=== PATIENT | male | born 1980 | race Caucasian/White ===

== ENCOUNTER 2023-08-22 14:41 | Outpatient (AMB) | payer OTHER, SELFPAY ==
--- NOTE | 2023-08-22 15:11 | A.SPINEOV_ITS ---
Intake Intake Visit Reasons: F/U for final evaluation of a cervical fusion Intake Note: Mr. Ernst is here today to f/u ACDF from 2021. Possible c/spine disc herniation. Psychiatry Adult Physician Required: No Assessment & Plan Assessment & Plan (1) Numbness in both hands: Code(s): R20.0 - Anesthesia of skin (2) Neck pain with history of cervical spinal surgery: Code(s): M54.2 - Cervicalgia; Z98.890 - Other specified postprocedural states (3) Status post cervical arthrodesis: Code(s): Z98.1 - Arthrodesis status Plan Dear colleague Thank you for referring Jay Ernst to the office today with a chief complaint of progressive neck pain and bilateral hand numbness. HPI: This patient is status post anterior diskectomy and fusion for neck pain and bilateral arm pain with numbness in September of 2022. He was doing well until last June. He states that he noted a increase in posterior neck pain located the cervicothoracic area and an increase in numbness in his hands particularly the 1st 3 digits. No new weakness. PMH: No major medical problems Medications: None Allergies: None Social history: Nonsmoker Physical Exam: Mild pain on palpation on the posterior neck. No limitations or restrictions of neck movements. Numbness of the 1st 3 digits bilaterally. No pathological reflexes. Impression/Plan: This 42-year-old male status post ACDF C5-C6 now returning with increasing neck pain and bilateral hand numbness since June. I would like to order a new MRI to rule out adjacent degenerative disc disease. He will have the MRI done at the [facility] and returned to my office with a CD after the imaging is done. Thank you for allowing me to participate in your patients care. total time spent was 30 minutes in counseling ,coordination of plan,and subsequent plan Boom Horner MD, PhD Spine Fellowship Trained Neurosurgeon Director, [facility] Orders: Orders MR cervical spine wo con Today M54.2 - Cervicalgia, R20.0 - Anesthesia of skin, Z98.1 - Arthrodesis status, Z98.890 - Other specified postprocedural states Coding Level of Care Code New Pt Level 3 (13702) Diagnoses Numbness in both hands R20.0 Neck pain with history of cervical spinal surgery M54.2; Z98.890 Status post cervical arthrodesis Z98.1
== END 2023-08-22 15:50 | disposition home or self-care (01) ==
PROVIDERS: Visit Provider Neurological Surgery
DX: R20.0 Anesthesia of skin (principal); M54.2 Cervicalgia; Z98.890 Other specified postprocedural states; Z98.1 Arthrodesis status
CPT/HCPCS: 99203

== ENCOUNTER → 2023-08-22 14:41 | Outpatient (BNVA) | payer MEDICAID, SELFPAY | PROVIDERS: PCP Family Medicine; Visit Provider Neurological Surgery | DX: M54.2 Cervicalgia (principal); R20.0 Anesthesia of skin; Z98.1 Arthrodesis status; Z98.890 Other specified postprocedural states | CPT/HCPCS: 99202 ==

== ENCOUNTER 2023-10-30 13:39 | Outpatient (AMB) | payer OTHER, SELFPAY ==
--- NOTE | 2023-10-30 14:01 | A.SPINEOV_ITS ---
Intake Intake Visit Reasons: MRI follow up Intake Note: Mr. Ernst is here today to discuss the results to his MRI. Computer Aided Design Drafter Required: No Assessment & Plan Assessment & Plan (1) Neck pain with history of cervical spinal surgery: Code(s): M54.2 - Cervicalgia; Z98.890 - Other specified postprocedural states Plan Mr Ernst is here in follow-up. He underwent an anterior cervical diskectomy and fusion at C5-6. He has had residual right shoulder pain and saw Dr. Horner previously. A new MRI was ordered to evaluate for residual compression. It was done at the [facility] and it shows good placement of the hardware with no residual nerve compression. There is no significant spinal stenosis or foraminal stenosis at any other level the spine. On my exam, he is showing significant amounts of pain and grimacing with internal and external rotation of his shoulder so I suspect it is coming from th ere. From our standpoint things look okay and he can follow up with an orthopedic surgeon regarding his shoulder. Total amount of time spent in this visit was 20 minutes in discussion of symptoms, cervical MRI imaging results and subsequent plan of care Bradford Horner MD,PhD [facility] Coding Level of Care Code Est Pt Level 3 (87149) Diagnoses Neck pain with history of cervical spinal surgery M54.2; Z98.890
== END 2023-10-30 14:41 | disposition home or self-care (01) ==
PROVIDERS: Visit Provider Physician Assistant
DX: M54.2 Cervicalgia (principal); Z98.890 Other specified postprocedural states
CPT/HCPCS: 99213

== ENCOUNTER → 2023-10-30 13:39 | Outpatient (BNVA) | payer OTHER, SELFPAY | PROVIDERS: Visit Provider Physician Assistant ==

== ENCOUNTER 2025-08-21 13:43 | Outpatient (AMB) | payer OTHER, SELFPAY ==
--- NOTE | 2025-08-21 13:51 | A.SPINEOV_ITS ---
Intake Visit Reasons: Back pain Intake Note: Mr. Ernst is here today c/o new symptoms of back pain. Commercial Carpet Installer Required: No Allergies No Known Allergies Allergy (Verified 08/21/25 13:52) Assessment & Plan Assessment & Plan (1) Cervical myelopathy: Code(s): G95.9 - Disease of spinal cord, unspecified Category: Medical Plan: Dear colleague, On 08/21/2025, I saw Jay Ernst. He had he I do not hernia repair 2 weeks ago and woke up with numbness of his bilateral arms and hands. He has a history of an anterior diskectomy and fusion C5-6. Fortunately, the symptoms have improved. They are still residual numbness of the dorsum of his hands. The w ere a not a surgery on September 08. On exam, there are no motor deficits. There is subjective hypoesthesia of the dorsum of his bilateral hands. Reflexes are symmetrically low. No pathological reflexes. An x-ray of the cervical spine shows stable C5-6 construct. The symptoms that happened after general anesthesia are suspicious for spinal cord compression and the patient that previously underwent an anterior diskectomy and fusion. Clinically wants to the C6-7 area. I ordered a stat MRI of the cervical spine to rule out spinal cord compression. The results will determine if he can proceed with the September 08 surgery. I spent 20 minutes in his consult for history physical reviewing imaging and discussing plan of care. Boom Horner MD, PhD Spine Fellowship Trained Neurosurgeon Director, [facility] Orders: Orders MR cervical spine wo con Today G95.9 - Disease of spinal cord, unspecified Coding Level of Care Code Est Pt Level 3 (64391) Diagnoses Cervical myelopathy G95.9
--- OUTSIDE RECORDS SUMMARY | 2025-08-21 20:02 | XMS_ITS | Clinical Summary ---
Author Organization [facility] it Address [address] [place] [address] Care Team Providers Care Hand Spray Operator Name Role Phone Sri Burk MD Primary Care Provider Social History Tobacco Use Types Packs/Day Years Used Date Smoking Tobacco: Never Assessed Sex and Gender Information Value Date Recorded Sex Assigned at Not on file Legal Sex Male 3:47 AM EST Gender Identity Not on file Sexual Orientation Not on file Plan of Treatment Health Maintenance Due Date Last Done Comments DTaP,Tdap,and Td Vaccines (1 - Tdap) 2001 Hepatitis B Vaccines (1 of 3 - 19+ 3-dose series) 2001 HPV Vaccines (1 - 3-dose SCD M series) 2009 Cholesterol Screening (Lipid Panel) 09/17/2022 HIV Screening 09/17/2022 Hepatitis C Screening 09/17/2022 Social Influencers of Health Screening 09/17/2022 Depression Screening 10/08/2024 COVID-19 Vaccine (3 - 2024-2 6 season) 2025 08/23/2021, 06/05/2021 Influenza Vaccine (#1) 2025 , 08/30/2020 RSV Immunization Adult Patients (1 - 1-dose 75+ series) 2057 HIB Vaccines Aged Out No longer eligi ble based on patient's age to complete this topic Hepatitis A Vaccines Aged Out No long er eligible based on patient's age to complete this topic IPV Vaccines Aged Out No longer eligi ble based on patient's age to complete this topic MMR Vaccines Aged Out No longer eligi ble based on patient's age to complete this topic Meningococcal ACWY Vaccine Aged Out N o longer eligible based on patient's age to complete this topic Meningococcal B Vaccine Aged Out No l onger eligible based on patient's age to complete this topic Pneumococcal Vaccine: Pediatrics (0 to 5 Years) and At-Risk Patients (6 to 49 Years) Aged Out No longer eligible b ased on patient's age to complete this topic RSV Immunization Patients Under 20 months Aged Out No longer eligible b ased on patient's age to complete this topic Varicella Vaccines Aged Out No longer eligible based on patient's age to complete this topic Care Teams Hand Spray Operator Relationship Specialty Start Date End Date Sri Burk MD [address] [place] [address] PCP - General Internal Medicine 04/03/22
--- OUTSIDE RECORDS SUMMARY | 2025-08-21 20:02 | XMS_ITS | Clinical Summary ---
Author Organization [address] [place] [address] Care Team Providers Care Tank Farm Operator Name Role Phone Unavailable Primary Care Provider Unavailabl e Social History Tobacco Use Types Packs/Day Years Used Date Smoking Tobacco: Never Assessed Sex and Gender Information Value Date Recorded Sex Assigned at Not on file Legal Sex Male 4:35 PM EDT Gender Identity Not on file Sexual Orientation Not on file Plan of Treatment Health Maintenance Due Date Last Done Comments HIV screening 12/30/1995 Hepatitis C screening 2000 Tetanus adult (Td q 10,TDAP once) 2002 Lipid disorder screening 2022 Influenza vaccine 05/08/2025 Covid-19 vaccine series ( - 2024- season) 2025 RSV Immunization (1 - 1-dose 75+ series) 2057 Meningococcal B Vaccine Aged Out No l onger eligible based on patient's age to complete this topic Meningococcal Vaccine Aged Out No viridiana sergio eligible based on patient's age to complete this topic Pneumococcal Vaccine (2 - 49 years) Aged Out No longer eligible based on patient's age to complete this topic
== END 2025-08-21 14:07 | disposition home or self-care (01) ==
LOC: HO.HNS 13:43
PROVIDERS: Visit Provider Neurological Surgery
DX: G95.9 Disease of spinal cord, unspecified (principal)
CPT/HCPCS: 99213